=== PATIENT | male | born 1980 | race Caucasian/White ===

== ENCOUNTER 2020-04-19 21:18 | Emergency (ER) | payer OTHER ==
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
[2020-04-19] MEDS ORDERED: Acetaminophen/oxyCODONE 325-5 MG Tab ONE (22:00)
[2020-04-21] MEDS: Bacitracin Oint 1 GM U/D Packet TOP ONE (02:25)
== END 2020-04-19 22:10 | disposition home or self-care (01) ==
LOC: LB.ED 21:18
DX: T23.041A Burn of unspecified degree of multiple right fingers (nail), including thumb, initial encounter (principal); X19.XXXA Contact with other heat and hot substances, initial encounter
CPT/HCPCS: 16020; 99283; A9270-GY